=== PATIENT | male | born 1950 | race Caucasian/White ===

== ENCOUNTER 2017-06-19 10:15 | Inpatient (IN) | payer OTHER ==
[~2017-06-19] VITALS: Ht 157.5 cm; Wt 94.4 kg
[~2017-06-19 10:15] MED LIST: ALLO300T2 PO; AMLO10TA80 PO; ASPI-1159 PO; ATOR20TA65 PO; BENA40TA3 PO; CHLO25TA2 PO; FERR-43 PO; HYDR-4135 PO; IBUP-2030 PO; MECL-127 PO; TEMA30CA PO; TRAM50TA PO; WARF5TAB73 PO
[2017-06-19] MEDS ORDERED: FUROSEMIDE 40MG/4ML VIAL IV ONE (10:30)
[2017-06-19 10:45] LABS: CLARITY URINE CLOUDY (CLEAR); COLOR URINE DARK YELLOW (YELLOW); KETONES URINE NEGATIVE (NEGATIVE); LEUKOCYTE ESTERASE URINE 2+ (NEGATIVE); NITRITE URINE POSITIVE (NEGATIVE); OCCULT BLOOD URINE 3+ (NEGATIVE); PROTEIN URINE 3+ (NEGATIVE); SPECIFIC GRAVITY URINE 1.021 (1.005-1.030)
[2017-06-19 11:26] LABS: BASOPHILS % 0.9 % (0.0-2.0); EOSINOPHILS % 0.4 % (0.0-5.0); HEMATOCRIT. 38.9 % (42.0-52.0); HEMOGLOBIN. 12.9 g/dL (14.0-18.0); LYMPHOCYTES % 15.4 % (20.0-50.0); MEAN CORPUSCULAR HEMOGLOBIN 29.3 pg (28.0-32.0); MEAN CORPUSCULAR VOLUME 88.5 fL (80.0-94.0); MEAN PLATELET VOLUME 7.3 fl (7.4-10.4); MONOCYTES % 6.4 % (2.0-8.0); NEUTROPHILS % 76.9 % (40.0-76.0); PLATELET 163 x1000/uL (130-400); RED CELL DISTRIBUTION WIDTH 18.4 % (11.6-14.6)
[2017-06-19 11:35] LABS: INR 1.5; PROTHROMBIN TIME 15.4 sec (9.4-11.6)
[2017-06-19] MEDS ORDERED: CEFTRIAXONE 1 G PREMIX 50 ML IV ONE (11:45)
[2017-06-19] MEDS ORDERED: DILTIAZEM HCL 5MG/ML 5ML VIAL IV ONE (11:45)
[2017-06-19 11:47] LABS: CARBON DIOXIDE 31 mEq/L (21-32); CHLORIDE 99 mEq/L (98-107); TROPONIN I < 0.02 ng/mL (0.00-0.04)
[2017-06-19] MEDS ORDERED: ASPIRIN 325MG TABLET PO ONE (15:00)
[2017-06-19 15:55] VITALS: BP 114/72
[2017-06-19 16:00] VITALS: BP 132/81
[2017-06-19] MEDS ORDERED: INFLUENZA VIRUS VACCINE 0.5ML SYR IM ONE (16:15)
[2017-06-19] MEDS ORDERED: DILTIAZEM HCL 5MG/ML 5ML VIAL IV NR (16:30)
[2017-06-19] MEDS ORDERED: TRAMADOL 50MG TABLET PO PRN (16:30)
[2017-06-19 18:00] VITALS: BP 111/83
[2017-06-19] MEDS: DILTIAZEM HCL 125 MG in SODIUM CHLORIDE 0.9% 100 ML IV SCH (18:12)
[2017-06-19 20:00] VITALS: BP 139/83
[2017-06-19] MEDS ORDERED: ACETAMINOPHEN 325MG TABLET PO PRN (20:15)
[2017-06-19] MEDS: ATORVASTATIN CALCIUM 20MG TABLET PO SCH (20:40)
[2017-06-19] MEDS: METOPROLOL TARTRATE 50MG TABLET PO SCH (20:41)
[2017-06-19] MEDS: FUROSEMIDE 40MG/4ML VIAL IVP SCH (20:41)
[2017-06-19] MEDS: ENOXAPARIN 100MG/ML SYR SUBCUT SCH (20:42)
[2017-06-19 22:00] VITALS: BP 126/82
[2017-06-19] MEDS: LEVOFLOXACIN 500MG PREMIX 100 ML IV SCH (22:01)
[2017-06-19] MEDS: TEMAZEPAM 15MG CAPSULE PO PRN (22:01)
[2017-06-19 23:25] LABS: CREATINE KINASE 37 IU/L (39-308); CREATINE KINASE MB FRACTION 0.9 ng/mL (0.5-3.6); TROPONIN I < 0.02 ng/mL (0.00-0.04)
[2017-06-20] VITALS (13 sets, daily range): BP systolic 100–129; BP diastolic 48–83
[2017-06-20] MEDS: DILTIAZEM HCL 125 MG in SODIUM CHLORIDE 0.9% 100 ML IV SCH (05:28)
[2017-06-20 07:25] LABS: BASOPHILS % 0.7 % (0.0-2.0); HEMATOCRIT. 37.2 % (42.0-52.0); HEMOGLOBIN. 12.6 g/dL (14.0-18.0); MEAN CORPUSCULAR HEMOGLOBIN 29.9 pg (28.0-32.0); MEAN CORPUSCULAR VOLUME 88.3 fL (80.0-94.0); MEAN PLATELET VOLUME 7.5 fl (7.4-10.4); MONOCYTES % 8.3 % (2.0-8.0); PLATELET 161 x1000/uL (130-400); RED BLOOD CELL COUNT 4.21 mill/uL (4.7-6.1); RED CELL DISTRIBUTION WIDTH 17.5 % (11.6-14.6)
[2017-06-20 07:44] LABS: CHLORIDE 99 mEq/L (98-107)
[2017-06-20 08:20] LABS: CARBON DIOXIDE 28 mEq/L (21-32); CREATINE KINASE 31 IU/L (39-308); TROPONIN I < 0.02 ng/mL (0.00-0.04)
[2017-06-20] MEDS: ENOXAPARIN 100MG/ML SYR SUBCUT SCH ×2 (08:31→21:51)
[2017-06-20] MEDS: METOPROLOL TARTRATE 50MG TABLET PO SCH ×2 (08:31→21:51)
[2017-06-20] MEDS: ASPIRIN 81MG EC TABLET PO SCH (08:31)
[2017-06-20] MEDS: ALLOPURINOL 300 MG TABLET PO SCH (08:31)
[2017-06-20] MEDS: FUROSEMIDE 40MG/4ML VIAL IVP SCH (08:42)
[2017-06-20] MEDS ORDERED: POTASSIUM CHLORIDE 20MEQ TABLET SR PO SCH (11:15)
[2017-06-20] MEDS ORDERED: POTASSIUM CHLORIDE 20MEQ TABLET SR PO NR (12:45)
[2017-06-20] MEDS ORDERED: FUROSEMIDE 40MG/4ML VIAL IVP NR (12:45)
[2017-06-20] MEDS: DILTIAZEM HCL 90MG TABLET PO SCH ×2 (13:45→21:51)
[2017-06-20 15:12] LABS: CREATINE KINASE 34 IU/L (39-308); CREATINE KINASE MB FRACTION 1.6 ng/mL (0.5-3.6); TROPONIN I < 0.02 ng/mL (0.00-0.04)
[2017-06-20] MEDS: ATORVASTATIN CALCIUM 20MG TABLET PO SCH (21:51)
[2017-06-20] MEDS: LEVOFLOXACIN 500MG PREMIX 100 ML IV SCH (21:51)
[2017-06-20] MEDS: TEMAZEPAM 15MG CAPSULE PO PRN (23:26)
[2017-06-21] VITALS (14 sets, daily range): BP systolic 93–132; BP diastolic 24–78
[2017-06-21 05:41] LABS: BASOPHILS % 0.9 % (0.0-2.0); EOSINOPHILS % 2.9 % (0.0-5.0); HEMATOCRIT. 36.4 % (42.0-52.0); HEMOGLOBIN. 12.2 g/dL (14.0-18.0); LYMPHOCYTES % 19.2 % (20.0-50.0); MEAN CORPUSCULAR HEMOGLOBIN 29.6 pg (28.0-32.0); MEAN CORPUSCULAR VOLUME 88.1 fL (80.0-94.0); MEAN PLATELET VOLUME 7.4 fl (7.4-10.4); MONOCYTES % 8.6 % (2.0-8.0); NEUTROPHILS % 68.4 % (40.0-76.0); PLATELET 170 x1000/uL (130-400); RED BLOOD CELL COUNT 4.13 mill/uL (4.7-6.1); RED CELL DISTRIBUTION WIDTH 17.8 % (11.6-14.6)
[2017-06-21 06:10] LABS: CARBON DIOXIDE 29 mEq/L (21-32); CHLORIDE 101 mEq/L (98-107)
[2017-06-21] MEDS: DILTIAZEM HCL 90MG TABLET PO SCH ×2 (08:33→11:09)
[2017-06-21] MEDS: METOPROLOL TARTRATE 50MG TABLET PO SCH ×2 (08:34→11:09)
[2017-06-21] MEDS: ENOXAPARIN 100MG/ML SYR SUBCUT SCH (08:39)
[2017-06-21] MEDS: FUROSEMIDE 40MG/4ML VIAL IVP SCH (08:39)
[2017-06-21] MEDS: ALLOPURINOL 300 MG TABLET PO SCH (08:39)
[2017-06-21] MEDS: ASPIRIN 81MG EC TABLET PO SCH (08:41)
[2017-06-21] MEDS ORDERED: POTASSIUM CHLORIDE 20MEQ TABLET SR PO NR (14:15)
[2017-06-21] MEDS ORDERED: METO-539 PO (14:43)
[2017-06-21] MEDS ORDERED: DILT60TA3 PO (14:44)
[2017-06-21] MEDS ORDERED: FURO40TA5 PO (14:45)
[2017-06-22] MEDS ORDERED: LEVOFLOXACIN 500MG TABLET PO SCH (11:00)
== END 2017-06-21 16:14 | disposition home or self-care (01) | DRG 872 ==
LOC: ER 10:20 → 3WST 11:40 → ENRESERV 13:01
PROVIDERS: ADMIT Internal Medicine; ATTEND Internal Medicine
DX: A41.9 Sepsis, unspecified organism (principal); E44.0 Moderate protein-calorie malnutrition; I48.91 Unspecified atrial fibrillation; I11.0 Hypertensive heart disease with heart failure; I50.9 Heart failure, unspecified; N39.0 Urinary tract infection, site not specified; M10.9 Gout, unspecified; E66.9 Obesity, unspecified; Z79.01 Long term (current) use of anticoagulants; Z79.899 Other long term (current) drug therapy; Z79.82 Long term (current) use of aspirin; Z68.38 Body mass index [BMI] 38.0-38.9, adult
CPT/HCPCS: 36415; 71010; 80053; 81001; 82550; 82553; 83880; 84443; 84484; 84550; 85025; 85610; 90686; 93005; 96365; 96372; 96375; 99291; A6261; J0696; J1650; J1940; J1956; J3490; J7040; J7050

== ENCOUNTER 2017-09-03 12:36 | Inpatient (IN) | payer OTHER ==
[~2017-09-03] VITALS: Ht 157.5 cm; Wt 103.9 kg
[~2017-09-03 12:36] MED LIST changes: -ALLO300T2 PO; -AMLO10TA80 PO; -CHLO25TA2 PO; +DILT60TA3 PO; +FURO40TA5 PO; +METO-539 PO; +WARF-53 PO; -WARF5TAB73 PO
[2017-09-03 15:07] LABS: BASOPHILS % 0.3 % (0.0-2.0); EOSINOPHILS % 0.5 % (0.0-5.0); HEMATOCRIT. 48.1 % (42.0-52.0); HEMOGLOBIN. 15.7 g/dL (14.0-18.0); LYMPHOCYTES % 29.1 % (20.0-50.0); MEAN CORPUSCULAR HEMOGLOBIN 29.1 pg (28.0-32.0); MEAN CORPUSCULAR VOLUME 88.9 fL (80.0-94.0); MEAN PLATELET VOLUME 8.5 fl (7.4-10.4); MONOCYTES % 10.4 % (2.0-8.0); NEUTROPHILS % 59.7 % (40.0-76.0); PLATELET 151 x1000/uL (130-400); RED BLOOD CELL COUNT 5.41 mill/uL (4.7-6.1); RED CELL DISTRIBUTION WIDTH 15.9 % (11.6-14.6)
[2017-09-03 15:20] LABS: CHLORIDE 108 mEq/L (98-107)
[2017-09-03 15:27] LABS: PARTIAL THROMBOPLASTIN TIME 35.4 sec (23.4-31.0); PROTHROMBIN TIME 54.2 sec (9.4-11.6)
[2017-09-03 15:30] LABS: CREATINE KINASE 76 IU/L (39-308); CREATINE KINASE MB FRACTION 2.4 ng/mL (0.5-3.6); ETHANOL BLOOD < 10 mg/dL; TROPONIN I < 0.02 ng/mL (0.00-0.04)
[2017-09-03 15:41] LABS: INR 5.2
[2017-09-03] MEDS ORDERED: FUROSEMIDE 40MG/4ML VIAL IVP ONE (18:45)
[2017-09-03] MEDS ORDERED: METHYLPREDNISOLONE SOD SUCC 125 MG/2 ML VIAL IV STA (18:49)
[2017-09-03] MEDS ORDERED: VERAPAMIL HCL 2.5 MG/1 ML 2ML VIAL IV ONE ×2 (19:00→20:00)
[2017-09-03] MEDS ORDERED: MAGNESIUM 2 G PREMIX 50 ML IV ONE (19:00)
[2017-09-03 19:38] LABS: *AMPHETAMINES SCREEN URINE NEGATIVE (NEGATIVE); *BARBITURATES SCREEN URINE NEGATIVE (NEGATIVE); *BENZODIAZEPINES SCREEN URINE NEGATIVE (NEGATIVE); *COCAINE SCREEN URINE NEGATIVE (NEGATIVE); CANNABINOID URINE SCREEN NEGATIVE (NEGATIVE); METHADONE URINE SCREEN NEGATIVE (NEGATIVE); OPIATES URINE SCREEN NEGATIVE (NEGATIVE); PHENCYCLIDINE URINE SCREEN NEGATIVE (NEGATIVE)
[2017-09-03] MEDS ORDERED: DIGOXIN 500MCG/2ML AMP IV ONE (20:45)
[2017-09-03 23:04] VITALS: BP 124/53
[2017-09-03 23:15] VITALS: BP 134/97
[2017-09-03 23:30] VITALS: BP 128/103
[2017-09-03 23:37] VITALS: BP 134/103
[2017-09-03 23:40] VITALS: BP 142/109
[2017-09-03 23:45] VITALS: BP 135/99
[2017-09-04] VITALS (69 sets, daily range): BP systolic 100–160; BP diastolic 49–148
[2017-09-04] MEDS: DILTIAZEM HCL 60MG TABLET PO SCH ×5 (00:26→23:22)
[2017-09-04] MEDS ORDERED: ONDANSETRON HCL 4MG/2ML VIAL IV PRN (02:15)
[2017-09-04] MEDS ORDERED: HYDROCODONE/ACETAMINOPHEN 5/325MG TABLET PO PRN (02:30)
[2017-09-04] MEDS: TEMAZEPAM 15MG CAPSULE PO PRN ×2 (02:47→21:56)
[2017-09-04] MEDS ORDERED: DILTIAZEM HCL 60MG TABLET PO SCH (06:00)
[2017-09-04] MEDS ORDERED: PANTOPRAZOLE 40MG DR TABLET PO SCH (06:30)
[2017-09-04 08:04] LABS: BASOPHILS % 0.5 % (0.0-2.0); HEMATOCRIT. 47.8 % (42.0-52.0); HEMOGLOBIN. 15.6 g/dL (14.0-18.0); LYMPHOCYTES % 19.3 % (20.0-50.0); MEAN CORPUSCULAR HEMOGLOBIN 28.9 pg (28.0-32.0); MEAN CORPUSCULAR VOLUME 88.5 fL (80.0-94.0); MONOCYTES % 1.1 % (2.0-8.0); NEUTROPHILS % 79.1 % (40.0-76.0); PLATELET 136 x1000/uL (130-400)
[2017-09-04 08:10] LABS: CHLORIDE 109 mEq/L (98-107)
[2017-09-04] MEDS: FUROSEMIDE 40MG/4ML VIAL IVP SCH (08:10)
[2017-09-04] MEDS: POTASSIUM CHLORIDE 20MEQ TABLET SR PO SCH (08:10)
[2017-09-04] MEDS: IPRATROPIUM/ALBUTEROL 0.5-3(2.5)MG/3ML NEB INH SCH ×3 (08:16→19:59)
[2017-09-04] MEDS ORDERED: ZIAC10 PO (10:25)
[2017-09-04] MEDS ORDERED: SACU1TAB PO (10:25)
[2017-09-04] MEDS ORDERED: FURO40TA5 PO (10:27)
[2017-09-04] MEDS ORDERED: CEFTRIAXONE 1,000 MG in DEXTROSE 5% WATER 50 ML IV SCH (10:30)
[2017-09-04 10:59] LABS: BG BASE EXCESS -2.5 mmol/L (-2.0-2.0); BG CARBOXYHEMOGLOBIN 1.6 % (0.5-1.5); BG DEOXYHEMOGLOBIN 4.5 % (0.0-5.0); BG FRACTION INSPIRED OXYGEN 32; BG HCO3 ACT 21.4 mmol/L (22.0-26.0); BG METHEMOGLOBIN 0.5 % (0.0-1.5); BG OXYGEN SATURATION 95.4 % (92.0-98.5); BG OXYHEMOGLOBIN 93.4 % (94.0-97.0); BG PCO2 34.9 mmHg (35.0-45.0); BG PH 7.405 (7.350-7.450); BG PO2 82.2 mmHg (75.0-100.0); BG SAMPLE SITE RIGHT BRACHIAL; BG TOTAL HEMOGLOBIN 16.2 g/dL (12.0-18.0); BG VENT MODE NASAL CANNULA
[2017-09-04] MEDS: CEFTRIAXONE 1 G PREMIX 50 ML IV SCH (12:01)
[2017-09-04 12:27] LABS: PROTHROMBIN TIME 46.8 sec (9.4-11.6)
[2017-09-04 12:34] LABS: INR 4.5
[2017-09-04] MEDS: BUDESONIDE 0.5MG/2ML NEB HHN SCH (13:18)
[2017-09-04] MEDS ORDERED: VERAPAMIL HCL 2.5 MG/1 ML 2ML VIAL IV PRN (18:00)
[2017-09-04] MEDS ORDERED: VERAPAMIL HCL 2.5 MG/1 ML 2ML VIAL IV NR (18:00)
[2017-09-04] MEDS ORDERED: DEXTROSE 50% WATER 50ML SYRINGE IV PRN (18:45)
[2017-09-04] MEDS ORDERED: INSULIN LISPRO 100 UNITS/ML SUBCUT NR (19:15)
[2017-09-04] MEDS: LORAZEPAM 0.5MG TABLET PO PRN (19:33)
[2017-09-04] MEDS: FAMOTIDINE 20MG/2ML VIAL IV SCH (21:00)
[2017-09-04] MEDS: INSULIN LISPRO 100 UNITS/ML SUBCUT SCH (21:01)
[2017-09-04] MEDS: BLOOD SUGAR DIAGNOSTIC STRIP TEST SCH (21:01)
[2017-09-05] VITALS (30 sets, daily range): BP systolic 103–146; BP diastolic 55–96
[2017-09-05] MEDS: BUDESONIDE 0.5MG/2ML NEB HHN SCH ×2 (01:45→08:42)
[2017-09-05] MEDS: IPRATROPIUM/ALBUTEROL 0.5-3(2.5)MG/3ML NEB INH SCH ×4 (01:45→20:20)
[2017-09-05 05:09] LABS: AMMONIA 37 uMol/L (<32)
[2017-09-05 05:22] LABS: HEMATOCRIT. 44.7 % (42.0-52.0); HEMOGLOBIN. 14.3 g/dL (14.0-18.0); MEAN CORPUSCULAR HEMOGLOBIN 28.4 pg (28.0-32.0); MEAN CORPUSCULAR VOLUME 89.2 fL (80.0-94.0); MEAN PLATELET VOLUME 8.5 fl (7.4-10.4); PLATELET 147 x1000/uL (130-400); RED BLOOD CELL COUNT 5.02 mill/uL (4.7-6.1); RED CELL DISTRIBUTION WIDTH 16.1 % (11.6-14.6)
[2017-09-05 05:31] LABS: PROTHROMBIN TIME 62.5 sec (9.4-11.6)
[2017-09-05] MEDS: BLOOD SUGAR DIAGNOSTIC STRIP TEST SCH ×4 (05:39→20:33)
[2017-09-05 05:42] LABS: CHLORIDE 105 mEq/L (98-107)
[2017-09-05 05:46] LABS: TROPONIN I < 0.02 ng/mL (0.00-0.04)
[2017-09-05] MEDS: DILTIAZEM HCL 60MG TABLET PO SCH ×4 (05:48→23:58)
[2017-09-05] MEDS: INSULIN LISPRO 100 UNITS/ML SUBCUT SCH ×4 (06:36→20:36)
[2017-09-05 07:46] LABS: PLATELET ESTIMATE NORMAL
[2017-09-05] MEDS: POTASSIUM CHLORIDE 20MEQ TABLET SR PO SCH (09:36)
[2017-09-05] MEDS: FAMOTIDINE 20MG/2ML VIAL IV SCH ×2 (09:36→20:27)
[2017-09-05] MEDS: FUROSEMIDE 40MG/4ML VIAL IVP SCH (09:36)
[2017-09-05] MEDS: CEFTRIAXONE 1 G PREMIX 50 ML IV SCH (12:15)
[2017-09-05] MEDS ORDERED: PHYTONADIONE 10MG/ML AMP SUBCUT ONE (16:15)
[2017-09-05] MEDS ORDERED: PHYTONADIONE 10MG/ML AMP SUBCUT NR (16:17)
[2017-09-05] MEDS ORDERED: FUROSEMIDE 40MG/4ML VIAL IVP NR (16:30)
[2017-09-05] MEDS: TEMAZEPAM 15MG CAPSULE PO PRN (20:27)
[2017-09-05] MEDS: LORAZEPAM 0.5MG TABLET PO PRN (22:20)
[2017-09-06] VITALS (9 sets, daily range): BP systolic 111–130; BP diastolic 61–84
[2017-09-06] MEDS: IPRATROPIUM/ALBUTEROL 0.5-3(2.5)MG/3ML NEB INH SCH ×3 (01:55→14:41)
[2017-09-06] MEDS: DILTIAZEM HCL 60MG TABLET PO SCH ×2 (06:16→13:15)
[2017-09-06] MEDS: BLOOD SUGAR DIAGNOSTIC STRIP TEST SCH ×2 (07:30→13:01)
[2017-09-06] MEDS: INSULIN LISPRO 100 UNITS/ML SUBCUT SCH ×2 (08:00→13:00)
[2017-09-06 08:05] LABS: INR 2.4; PROTHROMBIN TIME 25.1 sec (9.4-11.6)
[2017-09-06 08:20] LABS: BASOPHILS % 0.4 % (0.0-2.0); EOSINOPHILS % 1.6 % (0.0-5.0); HEMATOCRIT. 44.1 % (42.0-52.0); HEMOGLOBIN. 14.3 g/dL (14.0-18.0); LYMPHOCYTES % 12.6 % (20.0-50.0); MEAN CORPUSCULAR HEMOGLOBIN 28.9 pg (28.0-32.0); MEAN CORPUSCULAR VOLUME 88.9 fL (80.0-94.0); MEAN PLATELET VOLUME 8.5 fl (7.4-10.4); MONOCYTES % 7.9 % (2.0-8.0); NEUTROPHILS % 77.5 % (40.0-76.0); PLATELET 138 x1000/uL (130-400); RED BLOOD CELL COUNT 4.96 mill/uL (4.7-6.1); RED CELL DISTRIBUTION WIDTH 16.4 % (11.6-14.6)
[2017-09-06 08:27] LABS: CHLORIDE 104 mEq/L (98-107)
[2017-09-06] MEDS: BUDESONIDE 0.5MG/2ML NEB HHN SCH (08:28)
[2017-09-06] MEDS: FUROSEMIDE 40MG/4ML VIAL IVP SCH (08:54)
[2017-09-06] MEDS: FAMOTIDINE 20MG/2ML VIAL IV SCH (08:54)
[2017-09-06] MEDS: POTASSIUM CHLORIDE 20MEQ TABLET SR PO SCH (08:55)
== END 2017-09-06 17:58 | disposition home or self-care (01) | DRG 291 ==
LOC: ER 13:19 → EDBEDREQTM 18:52 → EDBEDREQSVC 18:52 → EDBEDREQ 18:52 → MICUSO 18:54 → EDBEDREQSVC 18:56 → EDBEDREQTM 18:56 → EDBEDREQ 18:56 → ENRESERV 22:15 → 5EST 09-05 13:25
PROVIDERS: ADMIT Internal Medicine; ATTEND Internal Medicine
PROC: 5A09357 Assistance with Respiratory Ventilation, Less than 24 Consecutive Hours, Continuous Positive Airway Pressure (ICD-10-PCS; principal; 2017-09-03)
PROC: 5A09357 Assistance with Respiratory Ventilation, Less than 24 Consecutive Hours, Continuous Positive Airway Pressure (ICD-10-PCS; 2017-09-04)
DX: I11.0 Hypertensive heart disease with heart failure (principal); J96.00 Acute respiratory failure, unspecified whether with hypoxia or hypercapnia; I27.81 Cor pulmonale (chronic); D68.9 Coagulation defect, unspecified; E66.2 Morbid (severe) obesity with alveolar hypoventilation; J44.1 Chronic obstructive pulmonary disease with (acute) exacerbation; N39.0 Urinary tract infection, site not specified; I50.23 Acute on chronic systolic (congestive) heart failure; I48.2 Chronic atrial fibrillation; F10.10 Alcohol abuse, uncomplicated; M10.9 Gout, unspecified; E11.9 Type 2 diabetes mellitus without complications; E87.6 Hypokalemia; G47.33 Obstructive sleep apnea (adult) (pediatric); I34.0 Nonrheumatic mitral (valve) insufficiency; I49.3 Ventricular premature depolarization; Z87.891 Personal history of nicotine dependence; Z79.01 Long term (current) use of anticoagulants; Z99.81 Dependence on supplemental oxygen; Z79.899 Other long term (current) drug therapy; Z79.82 Long term (current) use of aspirin; Y92.89 Other specified places as the place of occurrence of the external cause; T45.515A Adverse effect of anticoagulants, initial encounter
CPT/HCPCS: 36415; 36600; 70450; 71045; 74176; 80048; 80053; 80305; 82140; 82375; 82550; 82553; 82805; 82962; 83036; 83735; 83880; 84484; 85025; 85610; 85730; 93005; 93306; 93970; 94640; 94660; 96361; 96374; 96375; 97162; 99291; G0482; J0696; J1160; J1815; J1940; J2405; J2930; J3430; J3475; J3490; J7050; J7620; J7626

== ENCOUNTER 2017-09-12 19:21 | Emergency (ER) | payer OTHER ==
[~2017-09-12] VITALS: Ht 177.8 cm; Wt 99.0 kg
[~2017-09-12 19:21] MED LIST changes: -ASPI-1159 PO; -BENA40TA3 PO; -DILT60TA3 PO; -HYDR-4135 PO; -IBUP-2030 PO; -METO-539 PO; +SACU1TAB PO; +ZIAC10 PO
[2017-09-12 21:07] LABS: BASOPHILS % 1.2 % (0.0-2.0); EOSINOPHILS % 1.2 % (0.0-5.0); HEMATOCRIT. 47.3 % (42.0-52.0); HEMOGLOBIN. 15.7 g/dL (14.0-18.0); LYMPHOCYTES % 26.4 % (20.0-50.0); MEAN CORPUSCULAR HEMOGLOBIN 29.4 pg (28.0-32.0); MEAN CORPUSCULAR VOLUME 88.6 fL (80.0-94.0); MEAN PLATELET VOLUME 8.2 fl (7.4-10.4); MONOCYTES % 12.7 % (2.0-8.0); NEUTROPHILS % 58.5 % (40.0-76.0); PLATELET 167 x1000/uL (130-400); RED BLOOD CELL COUNT 5.34 mill/uL (4.7-6.1); RED CELL DISTRIBUTION WIDTH 16.5 % (11.6-14.6)
[2017-09-12 21:15] LABS: INR 1.8; PROTHROMBIN TIME 18.6 sec (9.4-11.6)
[2017-09-12 21:24] LABS: CHLORIDE 108 mEq/L (98-107)
[2017-09-12 23:17] VITALS: BP 123/79
== END 2017-09-12 23:16 | disposition home or self-care (01) ==
LOC: ER 19:46
DX: M54.2 Cervicalgia (principal); R63.0 Anorexia; I11.0 Hypertensive heart disease with heart failure; I50.9 Heart failure, unspecified; J44.9 Chronic obstructive pulmonary disease, unspecified; Z79.01 Long term (current) use of anticoagulants
CPT/HCPCS: 36415; 71045; 80048; 83880; 84484; 85025; 85610; 93005; 99285

== ENCOUNTER 2017-10-03 14:49 | Emergency (ER) | payer OTHER ==
[~2017-10-03] VITALS: Ht 180.3 cm; Wt 120.0 kg
[2017-10-03] MEDS ORDERED: SODIUM CHLORIDE 0.9% 1,000 ML IV ONE (15:06)
[2017-10-03] MEDS ORDERED: ONDANSETRON HCL 4MG/2ML VIAL IV STA (15:06)
[2017-10-03 15:56] LABS: CHLORIDE 105 mEq/L (98-107)
[2017-10-03 15:58] LABS: BASOPHILS % 0.2 % (0.0-2.0); EOSINOPHILS % 1.6 % (0.0-5.0); HEMATOCRIT. 49.6 % (42.0-52.0); HEMOGLOBIN. 16.3 g/dL (14.0-18.0); LYMPHOCYTES % 25.5 % (20.0-50.0); MEAN CORPUSCULAR VOLUME 88.2 fL (80.0-94.0); MEAN PLATELET VOLUME 8.4 fl (7.4-10.4); MONOCYTES % 10.9 % (2.0-8.0); NEUTROPHILS % 61.8 % (40.0-76.0); PLATELET 160 x1000/uL (130-400); RED BLOOD CELL COUNT 5.62 mill/uL (4.7-6.1); RED CELL DISTRIBUTION WIDTH 18.1 % (11.6-14.6)
[2017-10-03 16:02] LABS: PROTHROMBIN TIME 55.8 sec (9.4-11.6)
[2017-10-03 16:04] LABS: INR 5.3
[2017-10-03] MEDS ORDERED: DIATR MEGLU/DIATRIZOATE SOLN 30ML ONE (16:14)
[2017-10-03 16:18] LABS: CLARITY URINE CLEAR (CLEAR); COLOR URINE YELLOW (YELLOW); KETONES URINE NEGATIVE (NEGATIVE); LEUKOCYTE ESTERASE URINE NEGATIVE (NEGATIVE); NITRITE URINE NEGATIVE (NEGATIVE); OCCULT BLOOD URINE TRACE (NEGATIVE); PROTEIN URINE NEGATIVE (NEGATIVE); SPECIFIC GRAVITY URINE 1.015 (1.005-1.030)
[2017-10-03 16:32] LABS: *AMPHETAMINES SCREEN URINE NEGATIVE (NEGATIVE); *BARBITURATES SCREEN URINE NEGATIVE (NEGATIVE); *BENZODIAZEPINES SCREEN URINE NEGATIVE (NEGATIVE); *COCAINE SCREEN URINE NEGATIVE (NEGATIVE); METHADONE URINE SCREEN NEGATIVE (NEGATIVE)
[2017-10-03 16:33] LABS: CANNABINOID URINE SCREEN NEGATIVE (NEGATIVE); OPIATES URINE SCREEN NEGATIVE (NEGATIVE); PHENCYCLIDINE URINE SCREEN NEGATIVE (NEGATIVE)
[2017-10-03 20:35] VITALS: BP 135/89
[2017-10-03] MEDS ORDERED: LEVOFLOXACIN 250MG TABLET PO ONE (20:45)
[2017-10-03] MEDS ORDERED: METRONIDAZOLE 500MG TABLET PO ONE (20:45)
== END 2017-10-03 21:15 | disposition home or self-care (01) ==
LOC: ER 14:55 → CANBEDREQ 23:55
DX: K57.32 Diverticulitis of large intestine without perforation or abscess without bleeding (principal); R79.1 Abnormal coagulation profile; I11.0 Hypertensive heart disease with heart failure; I50.9 Heart failure, unspecified; J44.9 Chronic obstructive pulmonary disease, unspecified; Z79.01 Long term (current) use of anticoagulants
CPT/HCPCS: 36415; 74176; 80053; 80305; 81003; 83690; 84484; 85025; 85610; 96374; 99285; J2405; J7030; Q9963

== ENCOUNTER 2017-10-30 15:20 | Inpatient (IN) | payer OTHER ==
[~2017-10-30] VITALS: Ht 177.8 cm; Wt 107.2 kg
[2017-10-30 15:59] LABS: BASOPHILS % 1.2 % (0.0-2.0); EOSINOPHILS % 0.7 % (0.0-5.0); HEMATOCRIT. 50.1 % (42.0-52.0); HEMOGLOBIN. 16.4 g/dL (14.0-18.0); LYMPHOCYTES % 19.5 % (20.0-50.0); MEAN CORPUSCULAR HEMOGLOBIN 28.5 pg (28.0-32.0); MEAN CORPUSCULAR VOLUME 86.8 fL (80.0-94.0); MEAN PLATELET VOLUME 8.3 fl (7.4-10.4); MONOCYTES % 11.1 % (2.0-8.0); NEUTROPHILS % 67.5 % (40.0-76.0); PLATELET 139 x1000/uL (130-400); RED BLOOD CELL COUNT 5.77 mill/uL (4.7-6.1); RED CELL DISTRIBUTION WIDTH 19.3 % (11.6-14.6)
[2017-10-30 16:04] LABS: CHLORIDE 103 mEq/L (98-107)
[2017-10-30] MEDS ORDERED: DILTIAZEM HCL 5MG/ML 5ML VIAL IV ONE (16:30)
[2017-10-30 16:35] LABS: PROTHROMBIN TIME 158.2 sec (9.4-11.6)
[2017-10-30 16:36] LABS: INR 15.1
[2017-10-30] MEDS ORDERED: DILTIAZEM HCL 125 MG in DEXT 5% WATER 100 ML IV NR ×4 (16:45)
[2017-10-30] MEDS ORDERED: PHYTONADIONE 10MG/ML AMP IV ONE (16:45)
[2017-10-30 16:56] LABS: BG BASE EXCESS 2.2 mmol/L (-2.0-2.0); BG CARBOXYHEMOGLOBIN 1.3 % (0.5-1.5); BG DEOXYHEMOGLOBIN 4.3 % (0.0-5.0); BG FRACTION INSPIRED OXYGEN 28; BG HCO3 ACT 24.5 mmol/L (22.0-26.0); BG METHEMOGLOBIN 0.4 % (0.0-1.5); BG OXYGEN SATURATION 95.6 % (92.0-98.5); BG PCO2 32.2 mmHg (35.0-45.0); BG PH 7.499 (7.350-7.450); BG PO2 76.2 mmHg (75.0-100.0); BG SAMPLE SITE RIGHT BRACHIAL; BG VENT MODE NASAL CANNULA
[2017-10-30] MEDS ORDERED: IPRATROPIUM/ALBUTEROL 0.5-3(2.5)MG/3ML NEB INH PRN (17:30)
[2017-10-30] MEDS ORDERED: ONDANSETRON HCL 4MG/2ML VIAL IV PRN (17:30)
[2017-10-30] MEDS ORDERED: ACETAMINOPHEN 325MG TABLET PO PRN (17:30)
[2017-10-30] MEDS ORDERED: CLONIDINE 0.1MG TABLET PO PRN (17:30)
[2017-10-30] MEDS ORDERED: NA PHOS,M-B/NA PHOS,DI-BA ENEMA 118ML PR PRN (17:30)
[2017-10-30] MEDS ORDERED: IPRATROPIUM/ALBUTEROL 0.5-3(2.5)MG/3ML NEB HHN NR (18:15)
[2017-10-30 20:00] VITALS: BP 128/89
[2017-10-30] MEDS ORDERED: DILTIAZEM HCL 125 MG in DEXT 5% WATER 100 ML IV PRN (20:00)
[2017-10-30] MEDS ORDERED: LEVOFLOXACIN 500MG PREMIX 100 ML IV SCH (20:00)
[2017-10-30] MEDS: METHYLPREDNISOLONE SOD SUCC 40 MG/ML VIAL IV SCH (20:21)
[2017-10-30 20:42] LABS: AMMONIA 71 uMol/L (<32)
[2017-10-30 20:49] VITALS: BP 128/81
[2017-10-30 22:00] VITALS: BP 118/88
[2017-10-31] VITALS (13 sets, daily range): BP systolic 95–127; BP diastolic 55–94
[2017-10-31] MEDS ORDERED: DILTIAZEM HCL 125 MG in DEXT 5% WATER 100 ML IV PRN (02:30)
[2017-10-31] MEDS: METHYLPREDNISOLONE SOD SUCC 40 MG/ML VIAL IV SCH (04:08)
[2017-10-31 05:49] LABS: CLARITY URINE CLEAR (CLEAR); COLOR URINE YELLOW (YELLOW); KETONES URINE NEGATIVE (NEGATIVE); LEUKOCYTE ESTERASE URINE NEGATIVE (NEGATIVE); NITRITE URINE NEGATIVE (NEGATIVE); OCCULT BLOOD URINE NEGATIVE (NEGATIVE); PROTEIN URINE TRACE (NEGATIVE); SPECIFIC GRAVITY URINE 1.017 (1.005-1.030); UROBILINOGEN URINE 0.2 E.U./dL (0.2-1.0)
[2017-10-31 06:24] LABS: *AMPHETAMINES SCREEN URINE NEGATIVE (NEGATIVE); *BARBITURATES SCREEN URINE NEGATIVE (NEGATIVE)
[2017-10-31 06:25] LABS: *BENZODIAZEPINES SCREEN URINE PRESUMTIVE POSITIVE (NEGATIVE); *COCAINE SCREEN URINE NEGATIVE (NEGATIVE); CANNABINOID URINE SCREEN NEGATIVE (NEGATIVE); METHADONE URINE SCREEN NEGATIVE (NEGATIVE)
[2017-10-31 06:27] LABS: OPIATES URINE SCREEN NEGATIVE (NEGATIVE)
[2017-10-31 06:29] LABS: PHENCYCLIDINE URINE SCREEN NEGATIVE (NEGATIVE)
[2017-10-31 07:18] LABS: HEMATOCRIT. 50.8 % (42.0-52.0); HEMOGLOBIN. 16.6 g/dL (14.0-18.0); MEAN CORPUSCULAR HEMOGLOBIN 28.4 pg (28.0-32.0); MEAN CORPUSCULAR VOLUME 86.7 fL (80.0-94.0); MEAN PLATELET VOLUME 8.5 fl (7.4-10.4); PLATELET 123 x1000/uL (130-400); RED BLOOD CELL COUNT 5.87 mill/uL (4.7-6.1); RED CELL DISTRIBUTION WIDTH 19.2 % (11.6-14.6)
[2017-10-31 08:16] LABS: CHLORIDE 103 mEq/L (98-107)
[2017-10-31 08:34] LABS: CREATINE KINASE 260 IU/L (39-308)
[2017-10-31 08:39] LABS: HDL CHOLESTEROL 24 mg/dL (40-59)
[2017-10-31 08:41] LABS: CREATINE KINASE MB FRACTION 6.4 ng/mL (0.5-3.6)
[2017-10-31 08:43] LABS: LDL CHOLESTEROL 59 mg/dL (5-100); T4 FREE 1.65 ng/dL (0.76-1.46)
[2017-10-31 09:11] LABS: PLATELET ESTIMATE SLIGHTLY DECREASED
[2017-10-31] MEDS: PANTOPRAZOLE SODIUM 40 MG/VIAL IV SCH (10:26)
[2017-10-31] MEDS: ATORVASTATIN CALCIUM 20MG TABLET PO SCH (10:26)
[2017-10-31] MEDS: FERROUS SULFATE 325MG TABLET PO SCH ×2 (10:26→17:46)
[2017-10-31 11:20] LABS: INR 3.8; PROTHROMBIN TIME 39.2 sec (9.4-11.6)
[2017-10-31] MEDS: DILTIAZEM HCL 90MG TABLET PO SCH ×3 (15:05→23:54)
[2017-10-31] MEDS: FUROSEMIDE 40MG/4ML VIAL IVP SCH ×2 (15:05→20:32)
[2017-10-31] MEDS: HYDROCODONE/ACETAMINOPHEN 5/325MG TABLET PO PRN (15:36)
[2017-10-31] MEDS ORDERED: LEVOFLOXACIN 250MG PREMIX 50 ML IV SCH (21:00)
[2017-11-01] VITALS (12 sets, daily range): BP systolic 101–113; BP diastolic 67–81
[2017-11-01] MEDS: DILTIAZEM HCL 90MG TABLET PO SCH ×4 (05:37→23:51)
[2017-11-01 07:31] LABS: INR 2.3; PROTHROMBIN TIME 23.4 sec (9.4-11.6)
[2017-11-01 07:34] LABS: HEMATOCRIT. 47.5 % (42.0-52.0); HEMOGLOBIN. 15.6 g/dL (14.0-18.0); MEAN CORPUSCULAR HEMOGLOBIN 28.3 pg (28.0-32.0); MEAN CORPUSCULAR VOLUME 86.1 fL (80.0-94.0); MEAN PLATELET VOLUME 8.5 fl (7.4-10.4); PLATELET 121 x1000/uL (130-400); RED BLOOD CELL COUNT 5.52 mill/uL (4.7-6.1); RED CELL DISTRIBUTION WIDTH 19.6 % (11.6-14.6)
[2017-11-01 09:05] LABS: CHLORIDE 103 mEq/L (98-107)
[2017-11-01] MEDS: FERROUS SULFATE 325MG TABLET PO SCH ×2 (09:10→17:35)
[2017-11-01] MEDS: FUROSEMIDE 40MG/4ML VIAL IVP SCH ×2 (09:10→20:55)
[2017-11-01] MEDS: PANTOPRAZOLE SODIUM 40 MG/VIAL IV SCH (09:10)
[2017-11-01] MEDS: ATORVASTATIN CALCIUM 20MG TABLET PO SCH (09:14)
[2017-11-01 09:42] LABS: PLATELET ESTIMATE DECREASED
[2017-11-01] MEDS: LEVOFLOXACIN 500MG PREMIX 100 ML IV SCH (19:42)
[2017-11-02] VITALS (12 sets, daily range): BP systolic 98–121; BP diastolic 59–80
[2017-11-02] MEDS: DILTIAZEM HCL 90MG TABLET PO SCH ×3 (05:42→17:00)
[2017-11-02] MEDS: PANTOPRAZOLE 40MG DR TABLET PO SCH (06:24)
[2017-11-02 07:39] LABS: CHLORIDE 104 mEq/L (98-107)
[2017-11-02] MEDS: ATORVASTATIN CALCIUM 20MG TABLET PO SCH (08:12)
[2017-11-02] MEDS: FERROUS SULFATE 325MG TABLET PO SCH ×2 (08:12→17:00)
[2017-11-02] MEDS: FUROSEMIDE 40MG/4ML VIAL IVP SCH ×2 (08:12→21:03)
[2017-11-02] MEDS ORDERED: DIPHENHYDRAMINE 50MG/ML VIAL IV PRN (12:30)
[2017-11-02] MEDS: LEVOFLOXACIN 500MG PREMIX 100 ML IV SCH (20:43)
[2017-11-02] MEDS: TEMAZEPAM 15MG CAPSULE PO PRN (22:11)
[2017-11-03] VITALS (12 sets, daily range): BP systolic 105–141; BP diastolic 43–92
[2017-11-03] MEDS: DILTIAZEM HCL 90MG TABLET PO SCH ×5 (00:18→23:51)
[2017-11-03] MEDS: PANTOPRAZOLE 40MG DR TABLET PO SCH (06:10)
[2017-11-03 06:34] LABS: INR 2.3
[2017-11-03 06:37] LABS: HEMATOCRIT 47.5 % (42.0-52.0); HEMOGLOBIN 15.6 g/dL (14.0-18.0); MEAN CORPUSCULAR HEMOGLOBIN 28.6 pg (28.0-32.0); PLATELET 91 x1000/uL (130-400); RED BLOOD CELL COUNT 5.47 mill/uL (4.7-6.1); RED CELL DISTRIBUTION WIDTH 19.8 % (11.6-14.6)
[2017-11-03 07:27] LABS: AMMONIA 46 uMol/L (<32)
[2017-11-03] MEDS: FERROUS SULFATE 325MG TABLET PO SCH ×2 (09:02→18:30)
[2017-11-03] MEDS: FUROSEMIDE 40MG/4ML VIAL IVP SCH ×2 (09:02→21:12)
[2017-11-03] MEDS: ATORVASTATIN CALCIUM 20MG TABLET PO SCH (09:02)
[2017-11-03 17:30] LABS: BG BASE EXCESS 4.9 mmol/L (-2.0-2.0); BG CARBOXYHEMOGLOBIN 1.3 % (0.5-1.5); BG DEOXYHEMOGLOBIN 4.5 % (0.0-5.0); BG FRACTION INSPIRED OXYGEN 32; BG HCO3 ACT 29.5 mmol/L (22.0-26.0); BG METHEMOGLOBIN 0.3 % (0.0-1.5); BG OXYGEN SATURATION 95.4 % (92.0-98.5); BG OXYHEMOGLOBIN 93.9 % (94.0-97.0); BG PCO2 42.9 mmHg (35.0-45.0); BG PH 7.455 (7.350-7.450); BG PO2 77.5 mmHg (75.0-100.0); BG SAMPLE SITE RIGHT BRACHIAL; BG TOTAL HEMOGLOBIN 16.8 g/dL (12.0-18.0); BG VENT MODE NASAL CANNULA
[2017-11-03 19:37] LABS: AMMONIA 42 uMol/L (<32)
[2017-11-03] MEDS: LEVOFLOXACIN 500MG PREMIX 100 ML IV SCH (20:16)
[2017-11-03] MEDS: LACTULOSE 20G/30ML UDC PO SCH (21:12)
[2017-11-03] MEDS: TEMAZEPAM 15MG CAPSULE PO PRN (21:46)
[2017-11-04] VITALS (21 sets, daily range): BP systolic 100–140; BP diastolic 58–84
[2017-11-04] MEDS: LACTULOSE 20G/30ML UDC PO SCH ×3 (06:10→23:36)
[2017-11-04] MEDS: DILTIAZEM HCL 90MG TABLET PO SCH ×3 (06:10→18:48)
[2017-11-04] MEDS: FAMOTIDINE 20MG TABLET PO SCH ×2 (07:43→23:35)
[2017-11-04] MEDS: FERROUS SULFATE 325MG TABLET PO SCH ×2 (07:43→18:48)
[2017-11-04] MEDS: FUROSEMIDE 40MG/4ML VIAL IVP SCH ×2 (07:43→23:42)
[2017-11-04] MEDS: ATORVASTATIN CALCIUM 20MG TABLET PO SCH (07:43)
[2017-11-04 09:28] LABS: HEMATOCRIT 49.1 % (42.0-52.0); HEMOGLOBIN 16.1 g/dL (14.0-18.0); INR 1.9; MEAN CORPUSCULAR HEMOGLOBIN 28.4 pg (28.0-32.0); MEAN CORPUSCULAR VOLUME 86.7 fL (80.0-94.0); PLATELET 101 x1000/uL (130-400); PROTHROMBIN TIME 20.3 sec (9.4-11.6); RED BLOOD CELL COUNT 5.66 mill/uL (4.7-6.1); RED CELL DISTRIBUTION WIDTH 19.5 % (11.6-14.6)
[2017-11-04 09:31] LABS: AMMONIA 40 uMol/L (<32)
[2017-11-04] MEDS ORDERED: LORAZEPAM 2MG/ML CPJ IV SCH (11:00)
[2017-11-04] MEDS ORDERED: SODIUM BICARBONATE 4% (2.4MEQ) 5ML VIAL IV ONE (13:20)
[2017-11-04] MEDS: HYDROCODONE/ACETAMINOPHEN 5/325MG TABLET PO PRN (14:25)
[2017-11-04] MEDS: QUETIAPINE FUMARATE 25MG TABLET PO SCH (18:48)
[2017-11-04] MEDS ORDERED: LEVOFLOXACIN 500MG TABLET PO SCH (21:00)
[2017-11-05] VITALS (16 sets, daily range): BP systolic 99–132; BP diastolic 56–81
[2017-11-05] MEDS: DILTIAZEM HCL 90MG TABLET PO SCH ×4 (05:38→17:02)
[2017-11-05] MEDS: LACTULOSE 20G/30ML UDC PO SCH ×2 (05:38→14:37)
[2017-11-05 06:31] LABS: INR 1.7
[2017-11-05 06:40] LABS: HEMATOCRIT 47.4 % (42.0-52.0); HEMOGLOBIN 15.4 g/dL (14.0-18.0); MEAN CORPUSCULAR HEMOGLOBIN 28.2 pg (28.0-32.0); MEAN CORPUSCULAR VOLUME 86.8 fL (80.0-94.0); PLATELET 89 x1000/uL (130-400); RED BLOOD CELL COUNT 5.46 mill/uL (4.7-6.1); RED CELL DISTRIBUTION WIDTH 19.7 % (11.6-14.6)
[2017-11-05 06:42] LABS: CHLORIDE 104 mEq/L (98-107)
[2017-11-05] MEDS: FUROSEMIDE 40MG/4ML VIAL IVP SCH ×2 (06:53→14:37)
[2017-11-05] MEDS: QUETIAPINE FUMARATE 25MG TABLET PO SCH (09:21)
[2017-11-05] MEDS: FERROUS SULFATE 325MG TABLET PO SCH ×2 (09:22→17:02)
[2017-11-05] MEDS: FAMOTIDINE 20MG TABLET PO SCH (09:22)
[2017-11-05] MEDS: ATORVASTATIN CALCIUM 20MG TABLET PO SCH (09:22)
== END 2017-11-05 19:28 | disposition home or self-care (01) | DRG 291 ==
LOC: ER 15:38 → 3WST 16:46 → ENRESERV 17:05
PROVIDERS: ADMIT Internal Medicine; ATTEND Internal Medicine
PROC: 5A09557 Assistance with Respiratory Ventilation, Greater than 96 Consecutive Hours, Continuous Positive Airway Pressure (ICD-10-PCS; 2017-10-30)
PROC: 30233L1 Transfusion of Nonautologous Fresh Plasma into Peripheral Vein, Percutaneous Approach (ICD-10-PCS; principal; 2017-11-04)
PROC: 0W9B3ZZ Drainage of Left Pleural Cavity, Percutaneous Approach (ICD-10-PCS; 2017-11-04)
PROC: 30233K1 Transfusion of Nonautologous Frozen Plasma into Peripheral Vein, Percutaneous Approach (ICD-10-PCS; 2017-11-04)
DX: I13.0 Hypertensive heart and chronic kidney disease with heart failure and stage 1 through stage 4 chronic kidney disease, or unspecified chronic kidney disease (principal); J96.00 Acute respiratory failure, unspecified whether with hypoxia or hypercapnia; N17.9 Acute kidney failure, unspecified; E87.3 Alkalosis; J18.9 Pneumonia, unspecified organism; E72.20 Disorder of urea cycle metabolism, unspecified; D68.9 Coagulation defect, unspecified; J90 Pleural effusion, not elsewhere classified; I50.33 Acute on chronic diastolic (congestive) heart failure; N39.0 Urinary tract infection, site not specified; I87.8 Other specified disorders of veins; E66.9 Obesity, unspecified; T45.511A Poisoning by anticoagulants, accidental (unintentional), initial encounter; I27.20 Pulmonary hypertension, unspecified; W18.30XA Fall on same level, unspecified, initial encounter; D64.9 Anemia, unspecified; E78.5 Hyperlipidemia, unspecified; I48.2 Chronic atrial fibrillation; R26.9 Unspecified abnormalities of gait and mobility; N18.9 Chronic kidney disease, unspecified; R62.7 Adult failure to thrive; Z79.01 Long term (current) use of anticoagulants; Z99.81 Dependence on supplemental oxygen; Y93.89 Activity, other specified; Y92.89 Other specified places as the place of occurrence of the external cause; Y99.8 Other external cause status; Z79.899 Other long term (current) drug therapy; Z68.33 Body mass index [BMI] 33.0-33.9, adult
CPT/HCPCS: 32555; 36415; 36600; 70450; 71045; 71250; 76604; 76770; 80048; 80053; 80061; 80305; 81003; 82140; 82375; 82550; 82553; 82805; 82945; 83615; 83880; 84157; 84439; 84443; 84484; 85025; 85027; 85379; 85610; 86850; 86900; 86927; 87040; 87070; 87086; 87205; 93005; 93306; 93923; 93970; 94640; 94660; 96365; 96366; 96375; 96376; 99291; C9113; J1940; J1956; J2060; J2405; J2920; J3430; J3490; J7040; J7050; J7060; J7620; P9017